=== PATIENT | male | born 1975 | race Caucasian/White ===

== ENCOUNTER 2020-12-20 13:02 | Outpatient (CLI) | payer BC, SELFPAY ==
[2020-12-20 13:49] LABS: Abs Immature Grans 0.02 10^3/uL (0.0-0.06); Absolute Basophil Count 0.03 10^3/uL (0.0-0.2); Absolute Eosinophil Count 0.03 10^3/uL (0.0-0.7); Absolute Monocyte Count 0.36 10^3/uL (0.1-0.8); Absolute Neutrophil Count 5.08 10^3/uL (1.2-6.7); Basophils % 0.4; Eosinophils % 0.4; HCT 45.9 % (40.0-50.0); HGB 15.4 g/dL (13.5-17.5); Immature Grans % 0.3; Lymphocytes % 20.2; MCH 30.5 pg (27.0-33.0); MCHC 33.6 % (32.0-36.0); MCV 90.9 fL (80-95); MPV 11.3 fL (8.0-11.0); Monocytes % 5.2; Neutrophils % 73.5; Nucleated RBC 0 %; Platelet Count 256 10^3/uL (130-400); RBC 5.05 10^6/uL (4.36-5.78); RDW 12.2 % (11.8-14.1); RDW-SD 40.4 fL; WBC 6.92 10^3/uL (4.4-10.8)
[2020-12-20 14:02] LABS: ALT 18 U/L (16-63); AST 12 U/L (15-37); Albumin 4.2 g/dL (3.4-5.0); Alkaline Phosphatase 57 U/L (46-116); Anion Gap 8.4 mmol/L (3-11); BUN 13 mg/dL (7-18); Bilirubin, Total 0.3 mg/dL (0.2-1.0); CO2 27.6 mmol/L (21.0-32.0); CREATININE 0.9 mg/dL (0.70-1.30); Calcium 10.1 mg/dL (8.5-10.1); Chloride 102 mmol/L (98-107); Glucose 115 mg/dL (74-106); Potassium 4.6 mmol/L (3.5-5.1); Sodium 138 mmol/L (136-145); Total Protein 8.1 g/dL (6.4-8.2)
== END 2020-12-20 13:03 | disposition home or self-care (01) ==
PROVIDERS: Visit Provider Family Medicine
DX: R42 Dizziness and giddiness (principal)
CPT/HCPCS: 36415; 80053; 85025

== ENCOUNTER 2020-12-24 08:30 | Emergency (ER) | payer BC, SELFPAY ==
[2020-12-24] VITALS (26 sets, daily range): BP systolic 128–143; BP diastolic 77–95; PULSE 76–108; RESP 9–23; TEMP 36.5; O2SAT 96–100
--- NOTE | 2020-12-24 08:45 | RT.EKG_ITS ---
APPROVED REPORT Exam: Resting ECG Patient Location: E HR:81 bpm ECG Measurements Heart Rate 81 AXIS VA 149 P 61 QRSd 92 QRS 2 QT 356 T 53 QTc 414 Conclusion Sinus rhythm...normal P axis, V-rate 60- 99 no WPW, no brugada, QTC 414, no HOCM, no acute ischemic changes, non-diagnostic EKG I have reviewed and interpreted ECG and agree with software generated interpretation.
--- NOTE | 2020-12-24 09:04 | ED.GENADUL_ITS ---
Discharge Plan Disposition Patient Disposition: HOME Condition: Stable Discharge Details Clinical Impression: Pneumonia, Abdominal pain, Syncope, Foreign body ingestion Primary Care Provider: None,None ED Provider: Jose Becker Home Meds and New Rx's Prescriptions: New doxycycline hyclate 100 mg capsule 100 mg PO BID Qty: 20 RF: 0 Discharge Instructions Instructions: Syncope (ED), Abdominal Pain (ED), Pneumonia (ED) Additional Instructions: Doxycycline as directed. Please watch for new or worsening symptoms and return to the ER for any concerns. The ingested foreign body and the small amount of blood in your urine should be followed as an outpatient for your primary care provider. You may have an outpatient x-ray of your abdomen as well as a repeat urinalysis. Please follow-up with them as scheduled I believe you said January 07. Covid testing is pending, you should quarantine until your results have come back negative. Stand Alone Forms: POSITIVE COVID-19/TO BE TESTED Medical Decision Making This is a 45-year-old gentleman, no significant past medical history. Patient has had intermittent abdominal pain now for the past couple of weeks, had a syncopal episode nearly 2 weeks ago, and was subsequently seen by the urgent care. Blood work was unremarkable, attempted to set up as an outpatient CT of his abdomen as well as a Holter monitor but because of insurance issues was unsuccessful. Patient reports to me right now that he is essentially asymptomatic but the pain comes throughout his abdomen, changes location, is crampy in nature. Given his syncopal episode I do believe obtaining an EKG and a troponin is reasonable, as well as a chest x-ray. Given his abdominal pain will obtain IV access, CBC, CMP, lipase, urinalysis, and will obtain CT imaging. I was able to discuss case with the urgent care, as well as review his records, concern was that of a partial rupture of an aneurysm or dissection of an aneurysm. Suggested a CTA. Rather than obtaining CT abdomen and pelvis with contrast, instead will obtain thorax, abdomen, pelvis CTA. Laboratory values reveal a white blood cell count of 6.18 hemoglobin 16.4 hematocrit 48.8 platelet count 279. Electrolytes unremarkable. Creatinine 0.9 with a GFR greater than 60. Glucose 108. Calcium 9.2 magnesium 1.9 total bili 0.7 AST 10 ALT 19 alk phos 259, troponin less than 0.05, lipase 113. Urinalysis with trace intact blood, 3-5 red cells. Chest x-ray negative per radiology. CT imaging read by radiology as mild infiltrate in both lung bases. No pleural effusion. There is a radiopaque density in the ascending colon located only a few centimeters above the ileocecal valve. It has the appearance of an ingested 3 mm foreign body which is probably metallic. The appendix is unremarkable. Abdominal aorta is not enlarged. Discussed CT findings with patient. Will initiate p.o. doxycycline obtain Covid test. 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 He has no known foreign body ingestion. We discussed outpatient plain film to further evaluate for metallic body and outpatient repeat urinalysis to evaluate hematuria. Patient has no additional questions or concerns and is comfortable with this plan. He is scheduled to be seen by his new primary care provider on January 07. We will set the patient up with a Holter monitor as well. Medical Records Medical records reviewed: Yes I reviewed the patient's medical records. Lab Data Lab results reviewed: Yes I reviewed the patient's lab results. Lab results narrative: Laboratory Tests Range/Units 12/24/20 12/24/20 12/24/20 08:45 08:45 09:08 WBC (4.4-10.8) 10^3/uL 6.18 RBC (4.36-5.78) 10^6/uL 5.35 Hgb (13.5-17.5) g/dL 16.4 Hct (40.0-50.0) % 48.8 MCV (80-95) fL 91.2 MCH (27.0-33.0) pg 30.7 MCHC (32.0-36.0) % 33.6 RDW (11.8-14.1) % 12.0 Plt Count (130-400) 10^3/uL 279 MPV (8.0-11.0) fL 11.1 H Immature Gran % 0.3 Neutrophils % 72.0 Lymphocytes % 20.4 Monocytes % 6.0 Eosinophils % 0.8 Basophils % 0.5 Nucleated RBC % % 0 Absolute Neutrophils (1.2-6.7) 10^3/uL 4.45 Absolute Lymphocytes (1.2-3.4) 10^3/uL 1.26 Absolute Monocytes (0.1-0.8) 10^3/uL 0.37 Absolute Eosinophils (0.0-0.7) 10^3/uL 0.05 Absolute Basophils (0.0-0.2) 10^3/uL 0.03 Sodium (136-145) mmol/L 140 Potassium (3.5-5.1) mmol/L 3.9 Chloride (98-107) mmol/L 103 Carbon Dioxide (21.0-32.0) mmol/L 26.5 Anion Gap (3-11) mmol/L 10.5 BUN (7-18) mg/dL 16 Creatinine (0.70-1.30) mg/dL 0.9 Estimated GFR/1.73 m2 (mL/min/1.73m2) >= 60.00 Glucose (74-106) mg/dL 108 H Calcium (8.5-10.1) mg/dL 9.2 Magnesium (1.8-2.4) mg/dL 1.9 Total Bilirubin (0.2-1.0) mg/dL 0.7 AST (15-37) U/L 10 L ALT (16-63) U/L 19 Alkaline Phosphatase (46-116) U/L 59 Troponin I (<0.06) ng/mL < 0.05 Total Protein (6.4-8.2) g/dL 8.3 H Albumin (3.4-5.0) g/dL 4.2 Lipase (73-393) U/L 113 Urine Color (Yellow) Yellow Urine Clarity (Clear) Clear Urine pH (5-8) 8.5 H Ur Specific [place] (1.005-1.025) 1.020 Urine Protein (Negative) mg/dL Negative Urine Ketones (Negative) mg/dL Negative Urine Blood (Negative) Trace-intact H Urine Nitrite (Negative) Negative Urine Bilirubin (Negative) Negative Urine Urobilinogen (Up TO 0.2) EU/dL 0.2 Ur Leukocyte Esterase (Negative) Negative Urine RBC (0-2) HPF 3-5 H Urine WBC (0-5) HPF 0-2 Ur Epithelial Cells (Negative) HPF Negative Urine Crystals (Negative) HPF Negative Urine Bacteria (Negative) HPF Rare Urine Casts (Negative) LPF Negative Urine Mucus (Negative) Heavy Ur Culture Indicated? No Urine Glucose (Negative) mg/dL Negative ECG Data Attestation: I personally reviewed and interpreted this ECG (s) as follows: Interpretation: Please see official report by Dr. Toribio. Sinus rhythm, ventricular rate of 81. No STEMI. HPI General Mode of arrival: ambulatory . Date/Time Provider Initiated Documentation: 12/24/20 08:32 . Limitations to Documentation: no limitations . Information obtained by: patient . HPI Narrative: This is a 45-year-old gentleman who denies any significant past medical history. He tells me that approximately 2 weeks ago he was woken in the middle the night with what he describes as diffuse sharp abdominal pain worse in the left side. He got up to go to the restroom and apparently had a syncopal episode, awoke on the ground, having injured his nose, his son was present at that time. Over the next 24-48 hours it seems as though his pain resolved completely. Subsequently he developed additional symptoms last , nausea, diffuse crampy abdominal pain is intermittent, nothing seems to make it worse or better. He was seen at the urgent care, laboratory values were unremarkable, there was talk about a Holter monitor and or CT imaging of his abdomen but they were having difficulty with his insurance allowing the studies. He denies recent illness or trauma. Denies fever, headache, neck pain, chest pain, shortness of breath, vomiting, diarrhea, constipation, dysuria, hematuria, blood in his stool, any radiation of pain into his groin or testicles. He states that the pain is crampy in nature, seems to change position in his abdomen, and does not radiate anywhere. Related Data Home Medications Medication Instructions Recorded Confirmed doxycycline hyclate 100 mg PO BID #20 cap 12/24/20 Previous Rx's Medication Instructions Recorded doxycycline hyclate 100 mg PO BID #20 cap 12/24/20 Allergies Allergy/AdvReac Type Severity Reaction Status Date / Time No Known Allergies Allergy Unverified 12/24/20 08:41 General Stated Complaint: Abd Prob JOHN: 3 Review of Systems Constitutional Constitutional: Denies fatigue, Denies fever(s), Denies headache(s) and Denies weakness ENT Ears, Nose, Mouth, and Throat: Denies headache(s) and Denies neck pain Cardiovascular Cardiovascular: Denies chest pain and Denies dyspnea Respiratory Respiratory: Denies cough and Denies dyspnea Gastrointestinal Gastrointestinal: Reports abdominal pain, Denies melena, Denies hematochezia, Denies constipation, Denies diarrhea, Reports nausea and Denies vomiting Genitourinary Genitourinary: Denies hematuria, Denies dysuria and Denies testicular pain Musculoskeletal Musculoskeletal: Denies back pain, Denies neck pain and Denies tingling Integumentary/Breasts Skin/Breast: Denies rash Neurologic Neurologic: Denies headache(s), Denies tingling, Denies tremor(s) and Denies weakness Endocrine Endocrine: Denies fatigue [facility] Social History Smoking/Tobacco Use Status: Former Tobacco Use Smoking risk assessment performed?: Yes Alcohol Intake: current Alcohol Intake frequency: a few times a month Alcohol type: beer Drug use: Never Substance use type: does not use Do you feel safe at home: Yes Do you feel safe in your relationship?: Yes Exam Const General: cooperative, healthy appearing, comfortable and no acute distress Orientation: alert and awake HENMT Head: normal to inspection, normocephalic and atraumatic Mouth: moist mucous membranes Eyes General: appearance normal, both eyes and all related structures Conjunctivae: conjunctivae normal Sclera: sclerae normal Neck Neck: normal visual inspection, full ROM, trachea midline and supple Resp Effort & Inspection: normal respiratory effort and able to speak in complete sentences Auscultation: clear to auscultation bilaterally Cardio Rate: regular rate Rhythm: regular rhythm GI Palpation: soft, not firm, no guarding, no pulsatile masses and nontender Auscultation: normal bowel sounds Back/Spine/Pelvis Back: No back tenderness Skin General skin exam: no rashes or lesions noted Neuro General: patient alert, patient awake, moves all extremities and no focal motor deficits Cognition: normal cognition Speech: speech normal Gait: normal gait Sensory Exam: no sensory deficits noted Extrem General: normal to inspection, full ROM and capillary refill normal Psych Appearance: grossly normal Mental Status: mental status grossly normal Course Vital Signs Vital signs: Vital Signs Temperature 36.5 C 12/24/20 08:36 Pulse 108 H 12/24/20 08:36 Respiratory Rate 18 12/24/20 08:36 Blood Pressure 141/83 H 12/24/20 08:36 Pulse Oximetry 99 12/24/20 08:36 Temperature 36.5 C 12/24/20 08:36 Temperature Source Temporal Artery Scan 12/24/20 08:36 Pulse 108 H 12/24/20 08:36 Respiratory Rate 18 12/24/20 08:36 Respiratory Effort Non-Labored 12/24/20 08:41 Blood Pressure 141/83 H 12/24/20 08:36 Blood Pressure Position Sitting 12/24/20 08:36 Pulse Oximetry 99 12/24/20 08:36 Oxygen Delivery Method Room Air 12/24/20 08:36 Oxygen Flow Rate 0 12/24/20 08:36 Pain Level 4 12/24/20 08:36
[2020-12-24 09:11] LABS: Abs Immature Grans 0.02 10^3/uL (0.0-0.06); Absolute Basophil Count 0.03 10^3/uL (0.0-0.2); Absolute Eosinophil Count 0.05 10^3/uL (0.0-0.7); Absolute Lymphocyte Count 1.26 10^3/uL (1.2-3.4); Absolute Monocyte Count 0.37 10^3/uL (0.1-0.8); Absolute Neutrophil Count 4.45 10^3/uL (1.2-6.7); Basophils % 0.5; Eosinophils % 0.8; HCT 48.8 % (40.0-50.0); HGB 16.4 g/dL (13.5-17.5); Immature Grans % 0.3; Lymphocytes % 20.4; MCH 30.7 pg (27.0-33.0); MCHC 33.6 % (32.0-36.0); MCV 91.2 fL (80-95); MPV 11.1 fL (8.0-11.0); Nucleated RBC 0 %; Platelet Count 279 10^3/uL (130-400); RBC 5.35 10^6/uL (4.36-5.78); RDW-SD 40.2 fL; WBC 6.18 10^3/uL (4.4-10.8)
[2020-12-24] MEDS: Normal Saline 1,000 ML 1000 ML IV (09:11)
[2020-12-24 09:14] LABS: Bilirubin Negative (Negative); Blood Trace-intact (Negative); Clarity Clear (Clear); Glucose Negative (Negative); Ketones Negative (Negative); Leukocyte Esterase Negative (Negative); Nitrite Negative (Negative); Urobilinogen 0.2 EU/dL (Up TO 0.2); pH 8.5 (5-8)
[2020-12-24 09:22] LABS: Bacteria Rare HPF (Negative); C & S Indicated? No; Casts Negative LPF (Negative); Crystals Negative HPF (Negative); Epithelial Cells Negative HPF (Negative); Mucus Heavy (Negative); WBC 0-2 HPF (0-5)
[2020-12-24 09:25] LABS: ALT 19 U/L (16-63); AST 10 U/L (15-37); Albumin 4.2 g/dL (3.4-5.0); Alkaline Phosphatase 59 U/L (46-116); Anion Gap 10.5 mmol/L (3-11); BUN 16 mg/dL (7-18); Bilirubin, Total 0.7 mg/dL (0.2-1.0); CO2 26.5 mmol/L (21.0-32.0); CREATININE 0.9 mg/dL (0.70-1.30); Calcium 9.2 mg/dL (8.5-10.1); Chloride 103 mmol/L (98-107); Glucose 108 mg/dL (74-106); Lipase 113 U/L (73-393); Magnesium 1.9 mg/dL (1.8-2.4); Potassium 3.9 mmol/L (3.5-5.1); Sodium 140 mmol/L (136-145); Total Protein 8.3 g/dL (6.4-8.2)
--- NOTE | 2020-12-24 09:25 | DI.RAD_ITS ---
EXAM: XR CHEST 2V PA LATERAL CLINICAL HISTORY: syncopy. TECHNIQUE: 2D digital imaging was performed. COMPARISON: No exams were available for comparison FINDINGS: Heart size is normal. The mediastinum is not widened. Lungs are clear. No infiltrates nor pleural effusions. IMPRESSION: No acute pulmonary findings. DATA REPOSITORY: RADIATION DOSE DELIVERED:
[2020-12-24 09:29] LABS: Troponin I < 0.05 ng/mL (<0.06)
--- NOTE | 2020-12-24 10:29 | DI.CT_ITS ---
EXAM: CT THORAX ABD/PEL CTA CLINICAL HISTORY: pain/syncope. TECHNIQUE: Imaging Protocol: Axial computed tomography images with coronal and sagittal reformatted images were created and reviewed CONTRAST MATERIAL: Intravenous: Omnipaque 350 Contrast volume:100 ml Oral: None COMPARISON: CR XR CHEST 2V PA LATERAL from 12/24/2020 FINDINGS: CHEST: LUNGS: There is mild infiltrate in both lung bases,, specifically in the posterior basal segments of both lower lobes. This is slightly more prominent on the right side.. There are no pleural effusion s. No pneumothorax. No significant focal findings in the trachea and mainstem bronchi. MEDIASTINUM: There is no hilar nor mediastinal adenopathy. Visualized thyroid unremarkable. CARDIAC: Heart size is normal. There is no pericardial effusion. AORTA: Caliber of the thoracic aorta is within normal limits.There is no evidence of aortic dissectio n. There is no evidence of abdominal aortic aneurysm nor dissection.There is no aneurysmal dilatation of the common iliac arteries.The celiac and superior mesenteric arteries are patent.Renal arteries are patent without significant stenosis. Inferior mesenteric artery is also demonstrated to be patent. No evidence of significant atherosclerotic disease at the level of the aortic bifurcations nor in the aortoiliac segments in both common femoral arteries are also nicely patent. ABDOMEN: There is no ascites. LIVER: There are no focal hepatic lesions nor dilatation of intrahepatic ducts. GALLBLADDER/BILIARY: No obvious gallbladder pathology. CBD is not dilated. PANCREAS: No evidence of pancreatic mass nor dilatation of the pancreatic duct. SPLEEN: Spleen is not enlarged. There are no intrasplenic lesions. Splenic and portal veins are goldberg nt. ADRENALS: There are no significant adrenal masses. KIDNEYS: No cysts evident. No calculi nor hydronephrosis. No solid renal masses. ABDOMINAL AORTA: The abdominal aorta is not enlarged. LYMPH NODES: There is no retroperitoneal nor para-aortic adenopathy. No obvious mesenteric masses. ABDOMINAL WALL/GI: No evidence of significant anterior abdominal wall hernia. There is a radiopaque foreign body in the posterior aspect of the cecum. This exhibits metallic density and measures 3 x 3 millimeters. Appendix appears unremarkable. PELVIS: LYMPH NODES: There is no intrapelvic nor inguinal adenopathy. GI: No evidence of appendicitis.No evidence of sigmoid diverticulitis. URINARY BLADDER: No calculi nor masses evident REPRODUCTIVE: Unremarkable OSSEOUS: No significant osseous lesions. IMPRESSION: 1. There is mild infiltrate in both lung bases, specifically in the posterior basal segments of both lower lobes. There are no pleural effusions. No intrathoracic adenopathy. 2. There is a radiopaque density in the ascending colon located if only a few cm above the ileocecal valve. This has the appearance of an adjusted 3 millimeter for body which is probably metallic. 3. The appendix appears unremarkable 4. There is no ascites. No free air. No bowel obstruction. RADIATION DOSE DELIVERED: 961.17mGy.cm Total DLP DATA REPOSITORY: All CT scans at this facility are submitted to the National Radiology Data Registry (NRDR) Dose Index Registry (DIR) with the [employer] ([employer]). RADIATION OPTIMIZATION: All CT scans at this facility use at least one of these dose optimization te chniques: automated exposure control; mA and/or kV adjustment per patient size (includes targeted exa ms where dose is matched to clinical indication); or iterative reconstruction.
[2020-12-24] MEDS: Normal Saline - Diluent 50 ML VIAL IV (10:54)
[2020-12-24] MEDS: Omnipaque 350 MG/ML 100 ML BTL IJ (10:55)
[2020-12-24] MEDS: Doxycycline Hyclate 100 MG CAP PO (12:22)
[2020-12-25 13:12] LABS: COVID-19 RT-PCR UVMMC Result Negative (Negative)
== END 2020-12-24 12:30 | disposition home or self-care (01) ==
PROVIDERS: Emergency Provider Physician Assistant
DX: J18.9 Pneumonia, unspecified organism (principal); R10.9 Unspecified abdominal pain; T18.4XXA Foreign body in colon, initial encounter; X58.XXXA Exposure to other specified factors, initial encounter; R55 Syncope and collapse; R31.9 Hematuria, unspecified; Z20.822 Contact with and (suspected) exposure to COVID-19
CPT/HCPCS: 74177; 80053; 83690; 93005; 96360; 99285; U0003; 71046; 81003; 81015; 83735; 84484; 85025; 93010; 93225; 99284; J3490

== ENCOUNTER 2020-12-24 11:45 | Outpatient (RCR) | payer BC, SELFPAY ==
--- NOTE | 2020-12-24 11:45 | HOLTER_ITS ---
APPROVED REPORT Exam Type: HOLTER MONITOR APPLICATION Reason for Test: abdominal pain Patient Location: O Conclusion This was a 48-hour Holter monitor ordered for syncope Rhythm throughout was sinus. Average heart rate was 64, minimum 51, maximum 105 There were very rare atrial and ventricular ectopic beats. There was no atrial fibrillation, no paus es greater than 3 seconds, no high-grade AV block No patient symptoms were reported
== END 2020-12-30 23:59 | disposition home or self-care (01) ==
LOC: RT 11:45
PROVIDERS: Visit Provider Physician Assistant
DX: R10.9 Unspecified abdominal pain (principal)
CPT/HCPCS: 93225; 93226

== ENCOUNTER 2020-12-31 18:53 | Outpatient (REF) | payer BC, SELFPAY ==
[2020-12-31 16:25] LABS: HCT 46.2 % (40.0-50.0); HGB 15.6 g/dL (13.5-17.5); MCH 30.4 pg (27.0-33.0); MCHC 33.8 % (32.0-36.0); MCV 89.9 fL (80-95); MPV 11.6 fL (8.0-11.0); Platelet Count 272 10^3/uL (130-400); RBC 5.14 10^6/uL (4.36-5.78); RDW 11.9 % (11.8-14.1); RDW-SD 39.5 fL; WBC 4.99 10^3/uL (4.4-10.8)
[2020-12-31 16:42] LABS: ALT 28 U/L (16-63); AST 12 U/L (15-37); Albumin 4.1 g/dL (3.4-5.0); Alkaline Phosphatase 62 U/L (46-116); Anion Gap 10.6 mmol/L (3-11); BUN 15 mg/dL (7-18); Bilirubin, Total 0.6 mg/dL (0.2-1.0); CO2 26.4 mmol/L (21.0-32.0); Calcium 9.5 mg/dL (8.5-10.1); Chloride 100 mmol/L (98-107); Glucose 98 mg/dL (74-106); Potassium 4.2 mmol/L (3.5-5.1); Sodium 137 mmol/L (136-145); Total Protein 7.8 g/dL (6.4-8.2)
[2020-12-31 16:43] LABS: C-Reactive Protein < 0.05 mg/dL (0.0-0.3)
[2020-12-31 18:10] LABS: Mono Screening Negative (Negative)
[2021-01-01 10:41] LABS: Lyme Ab w Rflx to Lyme Confirm Negative (Negative)
[2021-01-03 22:03] LABS: Anaplasma phagocytophilum Negative (Negative); B. miyamotoi PCR Negative (Negative); Babesia divergens/MO-1 Negative (Negative); Babesia duncani Negative (Negative); Babesia microti Negative (Negative); Ehrlichia chaffeensis Negative (Negative); Ehrlichia ewingii/canis Negative (Negative); Ehrlichia muris eauclairensis Negative (Negative)
== END 2020-12-31 18:54 | disposition home or self-care (01) ==
LOC: NCHCN 18:53
PROVIDERS: Visit Provider Physician Assistant
DX: R53.83 Other fatigue (principal)
CPT/HCPCS: 80053; 85027; 87798; 86140; 86308; 86618

== ENCOUNTER 2021-01-03 03:04 | Outpatient (CLI) | payer BC, SELFPAY ==
--- NOTE | 2021-01-03 | DI.CT_ITS ---
EXAM: CT CHEST W CLINICAL HISTORY: PULMONARY INFILTRATE,R91.8, ? STATUS,NOT IMPROVING TECHNIQUE: Imaging Protocol: Axial computed tomography images with coronal and sagittal reformatted images were created and reviewed CONTRAST MATERIAL: Intravenous: Omnipaque 350 Contrast volume:70 mL. COMPARISON: CR XR CHEST 2V PA LATERAL from 12/24/[address] THORAX ABD/PEL CTA from 12/24/2020 FINDINGS: Tracheobronchial tree: Patent where visualized. Mediastinum and Deepa: No dominant adenopathy or fluid collection. Pulmonary parenchyma: The basilar infiltrates have resolved. Mild atelectasis is seen in the lung ba ses. No architectural distortion. Pleura: No effusion or pneumothorax. Heart: The heart is not dilated. No coronary artery calcifications are seen. Aorta: Thoracic aorta non-dilated. Upper abdomen: Unremarkable. Lymph nodes: Within normal limits. Bones: Normal. Soft tissues: Unremarkable. IMPRESSION: Resolution of the bilateral basilar infiltrates. No acute pulmonary process. RADIATION DOSE DELIVERED: 515.67mGy.cm Total DLP DATA REPOSITORY: All CT scans at this facility are submitted to the National Radiology Data Registry (NRDR) Dose Index Registry (DIR) with the [employer] (ACR). RADIATION OPTIMIZATION: All CT scans at this facility use at least one of these dose optimization te chniques: automated exposure control; mA and/or kV adjustment per patient size (includes targeted exa ms where dose is matched to clinical indication); or iterative reconstruction.
[2021-01-03] MEDS: Normal Saline - Diluent 50 ML VIAL IV (08:48)
[2021-01-03] MEDS: Omnipaque 350 MG/ML 50 ML BTL IJ ×2 (08:49→08:50)
== END 2021-01-03 03:24 ==
PROVIDERS: Visit Provider Physician Assistant
DX: Z87.09 Personal history of other diseases of the respiratory system (principal)
CPT/HCPCS: 71260; Q9967